=== PATIENT | female | born 1965 | race Caucasian/White ===

== ENCOUNTER → 2019-01-07 09:52 | Outpatient (CLI) | payer BC, SELFPAY ==
--- NOTE | 2019-01-07 11:10 | XR_ITS ---
XR hip LT 2-3V w/pelvis HISTORY: ITS.REASON: LAZARO HIP PAIN ORDERING PHYSICIAN: Tad Chance MD PATIENT AGE: 53 years COMPARISON: None FINDINGS: There are minimal osteoarthritic changes of the left hip with minimal spurring of the inferior aspect of the acetabulum. The joint spaces are well-preserved.. No fracture, dislocation or lytic change evident. There is minimal osteosclerosis of the symphysis pubis on the left with a small cystic area involving the inferior aspect of the left symphysis pubis. IMPRESSION: Minimal osteoarthritic change of the left hip. Osteosclerosis of the medial aspect of the symphysis pubis on the left with a small cystic area which may be due to a subchondral cyst.
--- NOTE | 2019-01-07 11:21 | XR_ITS ---
XR hip RT 2-3V w/pelvis HISTORY: ITS.REASON: BILATERAL HIP PAIN ORDERING PHYSICIAN: Tad Chance MD PATIENT AGE: 53 years COMPARISON: None FINDINGS: There are mild osteoarthritic changes of the right hip. No fracture, dislocation, lytic, or blastic change. IMPRESSION: Mild osteoarthritis right hip
== END ==
PROVIDERS: PCP Family Medicine; Visit Provider Family Medicine
DX: Z91.81 History of falling (principal); F05 Delirium due to known physiological condition; G40.A09 Absence epileptic syndrome, not intractable, without status epilepticus; R56.9 Unspecified convulsions; M25.552 Pain in left hip; M25.551 Pain in right hip
CPT/HCPCS: 73502; 95816

== ENCOUNTER → 2019-09-08 15:38 | Outpatient (CLI) | payer BC, SELFPAY ==
--- NOTE | 2019-09-08 15:46 | XR_ITS ---
PROCEDURE: XR KNEE RT 3V CLINICAL INDICATION: RT KNEE PAIN COMPARISON: No exams were available for comparison FINDINGS: No fracture or dislocation. No lytic or blastic change. There is normal mineralization. Is very slight decrease in the joint space medially suggesting minimal osteoarthritic change. Other findings:None. IMPRESSION: Minimal osteoarthritic change medial compartment Dictated by: Candelario Lewis MD 09/08/2019 17:14 Electronically signed by Candelario Lewis MD in [place] 09/08/2019 17:14
== END ==
PROVIDERS: PCP Family Medicine; Visit Provider Family Medicine
DX: M25.561 Pain in right knee (principal)
CPT/HCPCS: 73562

== ENCOUNTER → 2019-09-28 10:05 | Outpatient (CLI) | payer BC, SELFPAY ==
--- NOTE | 2019-09-28 10:09 | CA_ITS ---
APPROVED REPORT EXAM: Comprehensive 2D, Doppler, and color-flow Echocardiogram Weaver Apprentice: Marleni Serrano RDCS Ht: 5 ft 7 in Wt: 217lbs BSA: 2.09 BP: 124/84 mmHg Indications: SOA,LUCERO,COPD,OBESITY,HLP,DM,ANXIETY 2D Dimensions LVOT 1.82 cm (M/F) 1.5-2.5 M-Mode Dimensions RVDd 3.77 cm (0.9-2.6) LVDd 5.46 cm (3.5-5.7) LVDs 4.44 cm (3.5-5.7) IVSd 0.98 cm (0.6-1.1) PWd 0.59 cm (0.6-1.1) EF (Teich) 38.20% FS 18.70% EDV (Teich) 145.00 mL ESV (Teich) 89.60 mL LV Diastology E/A Ratio 0.93 Mitral Valve MV A Velocity 60.00 (40-130 cm/s) Left Ventricle Left atrium is mildly enlarged, left ventricle is normal size, mild concentric left ventricular hypertrophy, visually estimated ejection fraction 55% with no regional wall motion abnormality, endocardial surfaces are poorly visualized, grade 1 diastolic dysfunction seen without tissue Doppler evidence of raise left atrial pressure. Right Ventricle Right atrium and right ventricle are mildly enlarged with normal contractility. Aortic Valve Aortic valve is minimally thickened and fibrosed, there is no aortic stenosis insufficiency. Mitral Valve Mitral valve leaflets are minimally thickened, there is no mitral stenosis, there is mild mitral regurgitation. Tricuspid Valve Tricuspid valve is grossly normal, there is mild tricuspid regurgitation, tricuspid regurgitation jet velocity is inadequate for calculation of the right ventricular systolic pressure. Pulmonic Valve Pulmonic valve is poorly visualized. Great Vessels Aortic root is normal size. Pericardium No significant pericardial effusion noted. Conclusion 1. Biatrial alignment, normal left ventricular size, mild concentric left ventricular hypertrophy, visually estimated ejection fraction 55% with no regional wall motion abnormality, grade 1 diastolic dysfunction seen without tissue Doppler evidence of raise left atrial pressure. 2. Mildly enlarged right ventricle with normal contractility. 3. Mild mitral and tricuspid regurgitation. 4. No significant pericardial effusion noted. Electronically signed by : David Zepeda, 09/30/2019 07:50:36
--- NOTE | 2019-09-28 10:09 | CA_ITS ---
APPROVED REPORT Poultry Service Technician: FLORENCE Laterality: Bilateral Study Quality: Good Indications: SOA,LUCERO,COPD,HLP,SMOKER,OBESITY,DIZZINESS Doppler Spectral Velocity Analysis dICA (R) 86.70/38.30 cm/s dICA (L) 119.80/41.50 cm/s Xiomara (R) 60.60/24.50 cm/s Xiomara (L) 53.50/18.00 cm/s pICA (R) 43.60/13.80 cm/s pICA (L) 46.00/17.40 cm/s dCCA (R) 66.40/18.00 cm/s dCCA (L) 72.00/16.80 cm/s pCCA (R) 79.00/16.60 cm/s pCCA (L) 87.80/21.70 cm/s Vert (R) 38.90/11.50 cm/s Vert (L) 54.90/14.90 cm/s ICA/CCA 1.30 ICA/CCA 1.70 Findings Duplex evaluation demonstrates stenosis of the right proximal internal carotid artery <20% with PSV <140 cm/sec, EDV <100 cm/sec, and IC/CC Ratio <4.0.Duplex evaluation demonstrates stenosis of the left proximal internal carotid artery <20% with PSV <140 cm/sec, EDV <100 cm/sec, and IC/CC Ratio <4.0.Antegrade flow seen bilateral vertebral arteries. Conclusion No increased velocities to suggest hemodynamically significant stenosis in either internal carotid artery. Electronically signed by : Candelario Lewis MD 09/28/2019 17:13:49
== END ==
PROVIDERS: PCP Family Medicine; Visit Provider Nurse Practitioner
DX: R42 Dizziness and giddiness (principal); R01.1 Cardiac murmur, unspecified; R06.02 Shortness of breath
CPT/HCPCS: 93306; 93880

== ENCOUNTER → 2019-10-15 14:59 | Outpatient (CLI) | payer BC, SELFPAY ==
--- NOTE | 2019-10-15 15:07 | CA_ITS ---
APPROVED REPORT Bilateral Lower Extremity Venous Study for DVT. Preparation Operator: Tesha Acosta RVT Indications Lower Extremity Pain: Bilateral Lower Extremity Edema: Bilateral Shortness of breath Vein Imaging CFV (R): compressive, spontaneous, phasic, augmentation FEM (R): compressive, spontaneous, phasic, augmentation POP (R): compressive, spontaneous, phasic, augmentation PTV (R): Compressible GSV (R): Compressible Peroneals (R):Compressible GAS (R): Compressible CFV (L): compressive, spontaneous, phasic, augmentation FEM (L): compressive, spontaneous, phasic, augmentation POP (L): compressive, spontaneous, phasic, augmentation PTV (L): Compressible GSV (L): Compressible Peroneals (L):Compressible GAS (L): Compressible Findings Study suggests no evidence of DVT of the bilateral lower extremites. Study suggests no evidence of SVT of the bilateral lower extremites. There is a 7.8 cm (area is larger,unable to get accurate measurement)complex nodule seen right popliteal fossa that extends into the proximal to mid calf. Conclusion Study suggests no evidence of DVT of the bilateral lower extremites. Study suggests no evidence of SVT of the bilateral lower extremites. There is a 7.8 cm (area is larger,unable to get accurate measurement)complex nodule seen right popliteal fossa that extends into the proximal to mid calf. Differential diagnosis includes large complex Bakers cyst, hematoma, abscess or neoplasm. Suggest MRI with and without contrast of knee and right tib fib for further evaluation Electronically signed by : Candelario Lewis MD 10/15/2019 16:36:21
== END ==
PROVIDERS: PCP Family Medicine; Visit Provider Internal Medicine
DX: M79.605 Pain in left leg (principal); M79.604 Pain in right leg; R60.0 Localized edema
CPT/HCPCS: 93970

== ENCOUNTER → 2019-10-26 06:47 | Outpatient (CLI) | payer BC, SELFPAY ==
--- NOTE | 2019-10-26 | CA_ITS ---
APPROVED REPORT Exam: Pharmacologic Technologist: Angely Perez Ht: 5 ft 7 in Wt: 217 lbs BSA: 2.09 m2 HR: 86 bpm BP: 124/83 mmHg Indications: Chest pain, Shortness of Breath Medical History Medications: Lorazepam,,,,, Furosemide (LASIX),,,,, Aspirin,,,,, Gabapentin,,,,, DulOXETINE,,,,, Quetiapine,,,,, Potassium,,,,, Stress Test Details Test: LEXISCAN HR Resting HR: 86 bpm Max Heart Rate (APMHR): 166 bpm Max HR Achieved: 103 bpm Target HR (85% APMHR): 141 bpm % of APMHR: 62 Recovery HR: 91 bpm BP Resting BP: 124.0/83.0 mmHg Max BP: 124.0/83.0 mmHg Recovery BP: 10.0/69.0 mmHg ECG Clinical Exercise duration: 04:00 min Highest Stage Achieved: Exercise capacity: 1.0 METs Stress ECG Conclusion Resting ECG: Sinus rhythm Lexiscan portion completed. Patient complained of dizziness at peak infusion. Symptoms: Dizziness during peak infusion. Resolved in recovery. No chest pain. No shortness of breath. Arrhythmias/Ectopy: No ectopy. ST-T Changes: Less than 1.[address] Depression. Conclusion: Images to follow. Test Summary REST 03:19 . . 86 . 124/ 83 . . Stage 1 01:00 . . 91 . . . . Stage 2 01:00 . . 98 . . . . Stage 3 01:00 . . 95 . 93/ 57 . . Stage 4 01:00 . . 94 . 94/ 63 . Stop exercise at 04:00 RECOVERY 01:00 . . 93 . 101/ 66 . . RECOVERY 02:00 . . 92 . 108/ 68 . . RECOVERY 03:00 . . 92 . 110/ 66 . . RECOVERY 04:00 . . 90 . 110/ 66 . . RECOVERY 04:14 . . 90 . 100/ 69 . . Electronically signed by : David Zepeda, 10/26/2019 19:15:02
--- NOTE | 2019-10-26 06:48 | XR_ITS ---
PROCEDURE: XR CHEST 2V CLINICAL HISTORY: WILLIAM Chest pain and shortness of breath, smoker COMPARISON: CXR CHEST(2 VIEWS-NOT PORTABLE) from 08/27/2013 CXR CHEST(2 VIEWS-NOT PORTABLE) from 02/26/2014 CXR CHEST(2 VIEWS-NOT PORTABLE) from 07/31/2016 FINDINGS: The cardiomediastinal silhouette and pulmonary vascularity are within normal limits. Increased density is present involving the left upper lobe medially possibly due to bony hypertrophic changes. The remaining lungs are clear. No acute bony abnormalities. IMPRESSION: Increased density left upper lobe medially possibly due to overlying bony hypertrophic change which may be confirmed with chest CT otherwise negative Dictated by: Candelario Lewis MD 10/26/2019 11:47 Electronically signed by Candelario Lewis MD in [place] 10/26/2019 11:47
--- NOTE | 2019-10-26 06:48 | NM_ITS ---
APPROVED REPORT Exam: Nuclear Stress Test Indication: Chest pain, SOB, Abnormal EKG, DM, Tobacco use Patient Location: Outpatient Stress Tech: Angely Perez DC Tech:Tiesha Petersen, ARRT, RT (R)(N) Ht: 5 ft 7 in Wt: 217 lbs Bra Size: B HR: 86 bpm BP: 124/83 mmHg BSA: 2.09 m2 BMI: 33.9 History: Chest pain, SOB, Abnormal EKG, DM, Tobacco use Procedure: Patient received a 0.4 mg of intravenous Lexiscan, resting heart rate 86 bpm, resting blood pressure 124/83 mmHg, with Lexiscan maximum heart rate achived was 96 bpm which is Less than 85 % of the maximum predicted heart rate and blood pressure was 95/59 mmHg. With Lexiscan, patient denied any complaint of chest pain. Electrocardiogram Resting electrocardiogram showed sinus rhythm, with Lexiscan there is less than 1.[address] segment depression noted from the baseline EKG. The EKG portion of the Lexiscan is nondiagnostic. Cardiac Stress and Resting SPECT Images: Cardiac Stress and Resting SPECT images were obtained using technetium 99m Myoview 31.4 mCi stress and 10.15 mCi at rest. Gated gated SPECT with analysis of segmental wall motion and calculation of the ejection fraction also done. Cardiac stress and resting SPECT images show uniform myocardial activity without segmental perfusion abnormality, computer derived ejection fraction is over 65% with no regional wall motion abnormality, right ventricle is normal size and contractility. Conclusion: 1. The EKG portion of the Lexiscan Myoview is nondiagnostic. 2. No scintigraphic evidence of reversible ischemia seen, computer derived ejection fraction is over 65% with no regional wall motion abnormality, right ventricle is normal size and contractility. 3. Normal Lexiscan Myoview study. Electronically signed by : David Zepeda, 10/26/2019 19:17:27
--- NOTE | 2019-10-26 08:28 | HMH.ITSHM ---
Current Home Medications as stated by this patient Milena Cornell or commercial representative. []TRAZODONE QUETIAPINE POTASSIUM OMEGA 3 LORAZEPAM GLYCOPYROLATE GABAPENTIN FUROSEMIDE DULOXETINE ASA
[2019-10-26 11:25] LABS: Anion Gap 13.8 mEq/L (5-15); Blood Urea Nitrogen 21 mg/dl (7-17); Calcium 9.9 mg/dl (8.4-10.2); Carbon Dioxide 28 mmol/L (22.0-30.0); Chloride 99 mmol/L (98-107); Estimated Glomerular Filt Rate 75 ml/min (>60); GFR (African American) 90 ML/MIN (>60); Glucose 128 mg/dl (74-100); Potassium 4.8 mmoL/L (3.5-5.1); Sodium 136 mmol/L (136-145)
== END ==
PROVIDERS: Internal Medicine Cardiovascular Disease; PCP Family Medicine; Visit Provider Physician Assistant
DX: R07.9 Chest pain, unspecified (principal); R06.00 Dyspnea, unspecified; I45.10 Unspecified right bundle-branch block; R60.9 Edema, unspecified; G47.33 Obstructive sleep apnea (adult) (pediatric); J44.9 Chronic obstructive pulmonary disease, unspecified; R94.31 Abnormal electrocardiogram [ECG] [EKG]; Z82.49 Family history of ischemic heart disease and other diseases of the circulatory system; E13.69 Other specified diabetes mellitus with other specified complication; R07.89 Other chest pain
CPT/HCPCS: 36415; 71046; 78452; 80048; 93017; A9502; J2785

== ENCOUNTER → 2019-10-29 08:38 | Outpatient (CLI) | payer BC, SELFPAY ==
--- NOTE | 2019-10-29 08:38 | MR_ITS ---
PROCEDURE: MR LOWER LEG RT WO/W CON CLINICAL INDICATION: pain in right leg, mass seen on doppler Pain and swelling, tightness in leg, abnormal venous Doppler she COMPARISON: Venous Doppler of 10/15/2019, MRI of the knee 10/29/2019 TECHNIQUE: Routine multiplanar multi echo sequences are performed without and with gadolinium enhancement. FINDINGS: There is a complex fluid collection along the posterior medial aspect of the calf which is contiguous with the complex Cao's cyst. This collection measures 10 cm cephalad caudad, 4.4 cm AP, and 2 cm transverse isointense on T1 and hyperintense on T2 containing some internal debris and septations. This does appear to be contiguous with the Cao's cyst through a small channel between the Cao cyst and this fluid collection. This does demonstrate some peripheral contrast enhancement. There are some scattered areas of heterogeneous signal intensity within this collection suggesting underlying debris or hemorrhage. These areas also show some minimal enhancement. Overall, this is consistent with extension of the Cao's cyst into the calf. This collection lies along the medial aspect of the medial head of the gastrocnemius muscle causing compression upon that muscle. IMPRESSION: Complex fluid collection along the posterior medial aspect of the proximal and mid calf as described above which is felt to be related to complex extension of a Cao's cyst. This is causing some compression upon the medial head of the gastrocnemius muscle. Dictated by: Candelario Lewis MD 10/31/2019 11:27 Electronically signed by Candelario Lweis MD in [place] 10/31/2019 11:27
--- NOTE | 2019-10-29 08:38 | MR_ITS ---
PROCEDURE: MR KNEE RT WO/W CON CLINICAL INDICATION: pain in right leg, mass seen on doppler Right leg pain and swelling, abnormal venous Doppler, fluid collection in the knee COMPARISON: CA VENOUS DOPPLER LE BI from 10/15/2019 TECHNIQUE: Routine multiplanar multi echo sequences are performed without and with gadolinium enhancement. FINDINGS: The cruciate ligaments are intact. The patellar tendon, quadriceps tendon, and collateral ligaments are intact. There does appear to be a small the radial tear of the posterior horn of the medial meniscus. The patellar cartilage is preserved. There is a moderate size knee joint effusion mainly in the suprapatellar region with subcutaneous edema of the knee. There is a prominent septated Cao's cyst measuring 6.9 cm cephalad caudad and up to 2.6 cm AP. There is a small amount of soft tissue edema around the Cao's cyst. Please see the lower extremity report for further description of the leg. IMPRESSION: 1. Small radial tear involves the posterior horn of the medial meniscus. 2. Moderate-sized knee joint effusion mainly in the suprapatellar region with complex Cao's cyst with a small amount of soft tissue edema around the cyst and about the knee. Dictated by: Candelario Lewis MD 10/31/2019 11:00 Electronically signed by Candelario Lewis MD in [place] 10/31/2019 11:00
== END ==
PROVIDERS: PCP Family Medicine; Visit Provider Physician Assistant
DX: M79.604 Pain in right leg (principal); M79.605 Pain in left leg; R22.41 Localized swelling, mass and lump, right lower limb
CPT/HCPCS: 73720; 73723; A9576

== ENCOUNTER → 2019-11-17 13:15 | Outpatient (CLI) | payer BC, SELFPAY ==
--- NOTE | 2019-11-17 13:26 | XR_ITS ---
PROCEDURE: XR KNEE RT 4V CLINICAL INDICATION: right knee pain COMPARISON: XR KNEE RT 3V from 09/08/2019 FINDINGS: No fracture or dislocation. No lytic or blastic change. There is normal mineralization. The joint spaces are well-preserved. No significant degenerative/arthritic changes. No erosive changes evident. Other findings:None. IMPRESSION: No acute findings. Dictated by: Candelario Lewis MD 11/17/2019 13:48 Electronically signed by Candelario Lewis MD in [place] 11/17/2019 13:49
== END ==
PROVIDERS: PCP Family Medicine; Visit Provider Orthopaedic Surgery
DX: M25.561 Pain in right knee (principal)
CPT/HCPCS: 73564

== ENCOUNTER 2019-12-24 08:29 | Day surgery (SDC) | payer BC, SELFPAY ==
[2019-12-24 08:32] VITALS: BMI 34.0
[2019-12-24 09:02] VITALS: BP 123/88; PULSE 76; RESP 16; TEMP 36.7; O2SAT 95
[2019-12-24 09:14] LABS: Basophils # 0.1 K/mm3 (0-0.2); Eosinophils # 0.1 K/mm3 (0.0-0.4); Monocytes # 0.6 K/mm3 (0.1-1.0); Monocytes % 6.4 % (1.7-9.3); Neutrophils # 4.8 K/mm3 (1.8-7.8); White Blood Count 9.6 K/mm3 (4.8-10.8)
[2019-12-24 09:19] LABS: Basophils % 0.7 % (0.1-2.0); Eosinophils % 1.1 % (0.1-12.0); Hematocrit 52.6 % (37.0-47.0); Lymphocytes # 4.1 K/mm3 (0.7-4.5); Lymphocytes % 42.4 % (10-50); Mean Corpuscular Hemoglobin 30.4 pg (27.0-31.2); Mean Platelet Volume 7.6 fl (7.4-10.4); Neutrophils % 49.4 % (37.0-80.0); Platelet Count 263 K/mm3 (142-424); Red Blood Count 6.04 M/mm3 (4.20-5.40); Red Cell Distribution Width 13.6 % (11.5-17.5)
[2019-12-24 09:20] LABS: Chloride 108 mmol/L (98-107); Potassium 4.2 mmoL/L (3.5-5.1); Sodium 140 mmol/L (136-145)
[2019-12-24 09:23] LABS: Blood Urea Nitrogen 17 mg/dl (7-17); Creatinine Clearance Estimated 143 mL/min (50-200); Estimated Glomerular Filt Rate 87 ml/min (>60); GFR (African American) 106 ML/MIN (>60)
[2019-12-24 09:24] LABS: Anion Gap 10.2 mEq/L (5-15); Carbon Dioxide 26 mmol/L (22.0-30.0)
[2019-12-24 09:35] LABS: Hemoglobin 18.4 g/dL (12.2-16.2)
[2019-12-24 09:37] LABS: Calcium 9.6 mg/dl (8.4-10.2); Glucose 115 mg/dl (74-100)
--- NOTE | 2019-12-24 11:00 | IR_ITS ---
APPROVED REPORT Patient Location: Outpatient Transportation Inspector: ANGELICA Cifuentes RT (R) PROCEDURES Left heart catheterization Left ventriculogram Selective coronary angiogram INDICATION Abnormal stress test Informed consent was obtained prior to the procedure. COMPLICATIONS none Estimated Blood Loss: less than 10 mls TECHNIQUE One percent lidocaine used to anesthetize the right anterior aspect of the wrist. The right radial artery was accessed via the Seldinger technique. A 6 Hungarian sheath was placed in the right radial artery. 2.5 mg of verapamil, 800 mcg of nitroglycerin, 1mg Lidocaine and 5000 U Heparin were given through the arterial sheath. The trap catheter was also used to perform left heart catheterization, left ventriculogram and selective coronary angiogram. At the end of the procedure the sheath was removed good hemostasis was achieved using Traclet band, patient was transferred to the postop holding area in stable condition. ANGIOGRAPHIC RESULTS The left main artery Normal The left anterior descending artery Normal The circumflex artery Normal The right coronary artery Dominant normal The ESTRADA ventriculogram reveals Hyperdynamic 75% The left ventricular end-diastolic pressure 15 mmHg IMPRESSION Normal coronary arteries Hyperdynamic ventricle Mildly elevated LVEDP PLAN 1. Medical management for diastolic dysfunction Electronically signed by : Fazal Wilde, 12/24/2019 12:27:30
[2019-12-24 12:20] VITALS: BP 111/69; PULSE 74; RESP 18; O2SAT 88
[2019-12-24 12:25] VITALS: BP 134/69; PULSE 73; RESP 16; O2SAT 88
[2019-12-24 12:30] VITALS: BP 96/46; PULSE 90; RESP 16; O2SAT 94
[2019-12-24 12:36] VITALS: BP 114/67; PULSE 74; RESP 18; O2SAT 83
[2019-12-24 12:45] VITALS: BP 110/69; PULSE 82; RESP 17; O2SAT 91
== END 2019-12-24 14:42 | disposition home or self-care (01) ==
LOC: CATHLAB 08:31
PROVIDERS: PCP Family Medicine; Visit Provider Internal Medicine
DX: I20.8 Other forms of angina pectoris (principal); I50.30 Unspecified diastolic (congestive) heart failure; E11.9 Type 2 diabetes mellitus without complications; J44.9 Chronic obstructive pulmonary disease, unspecified; Z72.0 Tobacco use; Z79.51 Long term (current) use of inhaled steroids; Z79.899 Other long term (current) drug therapy
CPT/HCPCS: 80048; 85025; 93458; 99152; C1725; C1769; J1644; Q9967

== ENCOUNTER → 2020-06-13 15:58 | Outpatient (CLI) | payer BC, SELFPAY ==
[2020-06-15 13:19] LABS: Covid-19 Nasal PCR Sendout Lex Not Detected
== END ==
PROVIDERS: PCP Family Medicine; Visit Provider Family Medicine
DX: Z03.818 Encounter for observation for suspected exposure to other biological agents ruled out (principal)
CPT/HCPCS: U0004

== ENCOUNTER → 2020-06-28 15:44 | Outpatient (CLI) | payer BC, SELFPAY ==
[2020-06-30 14:48] LABS: Covid-19 Nasal PCR Sendout P&C NEGATIVE
== END ==
PROVIDERS: PCP Family Medicine; Visit Provider Family Medicine
DX: Z03.818 Encounter for observation for suspected exposure to other biological agents ruled out (principal)
CPT/HCPCS: U0004

== ENCOUNTER → 2020-12-13 09:11 | Outpatient (CLI) | payer BC, SELFPAY ==
--- NOTE | 2020-12-13 09:18 | XR_ITS ---
PROCEDURE: XR CHEST PORTABLE CLINICAL HISTORY: COVID OUTPATIENT COMPARISON: CR CXR CHEST(2 VIEWS-NOT PORTABLE) from 02/26/2014 CR CXR CHEST(2 VIEWS-NOT PORTABLE) from 07/31/2016 CR XR CHEST 2V from 10/26/2019 FINDINGS: The cardiomediastinal silhouette and pulmonary vascularity are within normal limits. No lobar consolidation or collapse. Minimal atelectatic change left lung base versus overlying vessels. No acute bony abnormalities. IMPRESSION: No acute findings. Dictated by: Candelario Lewis MD 12/13/2020 10:10 Candelario Lewis MD in [place] 12/13/2020 10:10
[2020-12-13 09:42] LABS: Basophils # 0.1 K/mm3 (0-0.2); Basophils % 0.9 % (0.1-2.0); Eosinophils # 0.1 K/mm3 (0.0-0.4); Eosinophils % 0.5 % (0.1-12.0); Hematocrit 47.8 % (37.0-47.0); Hemoglobin 16.1 g/dL (12.2-16.2); Lymphocytes # 5.6 K/mm3 (0.7-4.5); Lymphocytes % 48.4 % (10-50); Mean Corpuscular HGB Conc 33.7 g/dL (31.8-35.4); Mean Corpuscular Hemoglobin 29.8 pg (27.0-31.2); Mean Corpuscular Volume 88.6 fl (81-99); Mean Platelet Volume 7.4 fl (7.4-10.4); Monocytes # 0.6 K/mm3 (0.1-1.0); Monocytes % 5.2 % (1.7-9.3); Neutrophils # 5.2 K/mm3 (1.8-7.8); Platelet Count 316 K/mm3 (142-424); White Blood Count 11.5 K/mm3 (4.8-10.8)
== END ==
PROVIDERS: PCP Family Medicine; Visit Provider Family Medicine
DX: Z20.822 Contact with and (suspected) exposure to COVID-19 (principal)
CPT/HCPCS: 71045; 85025; U0003

== ENCOUNTER → 2021-05-23 07:07 | Outpatient (CLI) | payer BC, SELFPAY ==
--- NOTE | 2021-05-23 07:41 | CT_ITS ---
PROCEDURE: CT LUNG SCREENING CLINICAL INDICATION: SMOKER SCREENING COMPARISON: CR XR CHEST 2V from 10/26/2019 TECHNIQUE: The exam was performed on a GE Light Speed [address] scanner using 2.90 mGy CTDI. A low dose helical CT CHEST was performed on a multi-detector scanner. All CT scans at the facility use one or more dose reduction, viz: automated exposure control, ma/kV adjustment per patient size (including targeted exams where dose is matched to indication, i.e. head), or iterative reconstruction technique. The LDCT was performed in a facility that meets the criteria for the screening program. Data regarding this exam was submitted to ACR which is an approved registry. The order for this exam indicates that it came as a result of a lung cancer screening counseling shard decision-making visit that included all the elements required of such a visit including smoking cessation. The radiologist interpreting this exam meets the CMS criteria for the LDCT lung cancer screening program. The exam is reported using the Lung-RADS classification scale and reported to the ACR registry. NOTE: This study was performed for the specific purposes of lung cancer screening and is not an alternative to diagnostic chest CT. RADIATION DOSE: CTDI vol(CT dose Index-volume) = 2.90mG DLP (Dose Length Product) = 90.86 mGcm FINDINGS: Small fissural nodule in the right minor fissure 4 mm. Benign-appearing 4 mm subpleural nodule left upper lobe laterally. COPD with scattered areas of scarring. No suspicious nodule identified. Mild central bronchial thickening. OTHER FINDINGS: Mild wedging of T8 which appears chronic. Minimal superior endplate compression change T11 which may also be chronic. Indeterminate 2 cm I so to hypodense lesion in the upper pole of the left kidney. This may be due to an angio myelolipoma as average density is -[address] of the kidneys without and with contrast may confirm.. IMPRESSION: Lung-RADS Category 2 Benign Appearance or Behavior Follow-up: Recommend annual LDCT. Also suggest further evaluation of the left kidney lesion with CT with renal protocol without and with contrast. Dictated by: Candelario Lewis MD 05/27/2021 09:15 Candelario Lewis MD in [place] 05/27/2021 09:15
[2021-05-23 08:40] VITALS: PULSE 74; PULSE 77
== END ==
PROVIDERS: PCP Family Medicine; Visit Provider Family Medicine
DX: Z87.891 Personal history of nicotine dependence (principal); Z12.2 Encounter for screening for malignant neoplasm of respiratory organs; R06.02 Shortness of breath
CPT/HCPCS: 71271; 94060; 94618; 94640; 94727; 94729

== ENCOUNTER → 2021-09-26 11:50 | Outpatient (CLI) | payer BC, SELFPAY ==
--- NOTE | 2021-09-26 12:01 | XR_ITS ---
FINAL REPORT CLINICAL HISTORY: LEFT ANKLE SWELLING / ACUTE LEFT ANKLE PAIN fall 1 week ago FINDINGS: LEFT ANKLE 3 views were obtained. There is no acute fracture or dislocation. There are moderate anterior osteophytes along the anterior aspect of the mortise. There is diffuse soft tissue swelling. There is a well corticated ossific density inferior to the lateral malleolus measuring 9 mm consistent with old trauma. IMPRESSION: Soft tissue swelling with no acute bony abnormality. Reviewed, Interpreted and Dictated by Jai Choe MD Transcribed by Ambar Garcia Authenticated by Jai Choe MD on 09/26/2021 01:53:32 PM [facility]
== END ==
PROVIDERS: PCP Nurse Practitioner Family; Visit Provider Nurse Practitioner Family
DX: M25.572 Pain in left ankle and joints of left foot (principal); M25.472 Effusion, left ankle
CPT/HCPCS: 73610

== ENCOUNTER 2021-12-29 20:19 | Emergency (ER) | payer BC, SELFPAY ==
[2021-12-29 20:49] VITALS: BP 119/73; PULSE 74; RESP 18; TEMP 36.8; O2SAT 92; BMI 34.9
--- NOTE | 2021-12-29 20:50 | HMH.EDGENADL ---
ED Disposition Clinical Impression: Medication refill Disposition: Home, Self-Care Condition on Discharge: Good Referrals: Aretha Farmer APRN [Primary Care Provider] - - Critical Care Critical Care Time: No Attestation: On 12/29/21, the high probability of a clinically significant, sudden or life threatening deterioration of the following system(s) required my full and direct attention, intervention and personal management. The time I documented below is in addition to time spent performing reported procedures but includes the following listed in this critical care notation. Medical Decision Making - Medical Records Medical records reviewed: Yes: I reviewed the patient's medical records. - Kurtis Inquiry Pt receiving controlled substance: No Vital Signs: 12/29/21 20:49 Temperature 98.2 F Temperature Source Oral Pulse Rate [Apical] 74 Respiratory Rate 18 Blood Pressure [Right Arm] 119/73 Blood Pressure Mean [Right Arm] 88 02 Sat by Pulse Oximetry 92 L Oxygen Delivery Method Room Air Medical Decision Narrative: Patient is a 56-year-old female presenting with a request for lorazepam refill. She has recently received a refill for 120 of 2mg lorazepam QID PRN. Patient was seen by her primary care physician this past week. Patient was counseled that she should follow up with her primary care physician regarding refills for anxiety medications. She was offered alternate medicine to see if this may be helpful to her while she waits to see her primary care physician to get her refills on Saturday. Patient was agreeable with this. Currently, denies SI/HI. Denies any other concern or illness. General Adult HPI - General Stated complaint: depression possible could go into seizure Time Seen by Provider: 12/29/21 20:50 - History of Present Illness HPI narrative: Milena is a 56-year-old female with a history of anxiety is presenting with a chief complaint of medication refill. Patient states she takes 2 mg of lorazepam 3 times a day for anxiety. Per record review, patient received a prescription for 120 of 2 mg lorazepam on . She was seen by her primary care physician this past week who did not refill this prescription, unsure why. Patient states she only takes it 3 times a day as needed. She is requesting another refill. Denies recent illness, current SI/HI. - Related Data Home Medications Medication Instructions Recorded Confirmed aspirin 81 mg tablet,delayed 81 mg PO DAILY tab 01/09/18 06/06/21 release duloxetine 60 mg capsule,delayed 60 mg PO BID cap 01/09/18 06/06/21 release lorazepam 2 mg tablet 2 mg PO DAILY PRN tab 01/09/18 06/06/21 quetiapine 200 mg tablet 200 mg PO .Q HS tab 01/09/18 06/06/21 trazodone 100 mg tablet 100 mg PO .Q HS tab 01/09/18 06/06/21 omega 2-lgz-tyn-fish oil 1,000 mg 1 cap PO BID cap 10/15/19 06/06/21 (120 mg-180 mg) capsule albuterol sulfate 90 mcg/actuation 1 inh INHALATION QID 06/06/21 06/06/21 aerosol inhaler diclofenac sodium 50 mg 50 mg PO tab 06/06/21 06/06/21 tablet,delayed release Previous Rx's Medication Instructions Recorded metoprolol succinate 25 mg 25 mg PO DAILY #30 tab 05/30/20 tablet,extended release 24 hr budesonide 160 mcg-glycopyr 9 2 inh INHALATION BID 90 Days #10.7 06/06/21 mcg-formot 4.8 mcg/actuation HFA g inhaler ipratropium 0.5 mg-albuterol 3 mg 3 ml INHALATION Q6H PRN #90 ml 06/06/21 (2.5 mg base)/3 mL nebulization soln hydrOXYzine pamoate [Vistaril 25mg 25 mg PO Q6H PRN #40 cap 12/29/21 capsule] Allergies Allergy/AdvReac Type Severity Reaction Status Date / Time tapentadol [TAPENTADOL] Allergy Unknown SKIN PULLS Verified 06/06/21 11:47 OFF [facility] History - Hepatitis A Screen Attestation statement:: This patient has been screened for Hepatitis A risk factors. Medical History: Reports:: Anxiety, Cancer, Chronic Obstructive Pulmonary Disease (COPD), Depression, Diabetes
[2021-12-29 21:56] VITALS: BP 118/70; PULSE 85; RESP 18; TEMP 36.8; O2SAT 95
== END 2021-12-29 21:58 | disposition home or self-care (01) ==
PROVIDERS: Emergency Provider Emergency Medicine; PCP Nurse Practitioner Family
DX: Z76.0 Encounter for issue of repeat prescription (principal); F41.9 Anxiety disorder, unspecified; Z79.899 Other long term (current) drug therapy; Z88.8 Allergy status to other drugs, medicaments and biological substances; M19.90 Unspecified osteoarthritis, unspecified site; J44.9 Chronic obstructive pulmonary disease, unspecified; E10.9 Type 1 diabetes mellitus without complications; E11.9 Type 2 diabetes mellitus without complications; E78.5 Hyperlipidemia, unspecified; Z72.0 Tobacco use; Z85.9 Personal history of malignant neoplasm, unspecified; Z90.49 Acquired absence of other specified parts of digestive tract
CPT/HCPCS: 99282

== ENCOUNTER 2022-06-16 14:10 | Emergency (ER) | payer BC, SELFPAY ==
[2022-06-16 14:30] VITALS: BP 134/89; PULSE 68; RESP 19; TEMP 36.8; O2SAT 95; BMI 35.9
[2022-06-16 14:48] LABS: Coronavirus 19, PCR Not Detected (NotDetected); Influenza A, PCR Not Detected (NotDetected); Influenza B, PCR Not Detected (NotDetected)
--- NOTE | 2022-06-16 14:57 | XR_ITS ---
PROCEDURE INFORMATION: Exam: XR Chest Exam date and time: 06/16/2022 2:54 PM Age: 56 years old Clinical indication: Cough TECHNIQUE: Imaging protocol: Radiologic exam of the chest. Views: 2 views. COMPARISON: CR XR CHEST PORTABLE 12/13/2020 9:27 AM FINDINGS: Lungs: Mild opacities in both bases Pleural spaces: Unremarkable. No pleural effusion. No pneumothorax. Heart/Mediastinum: Unremarkable. No cardiomegaly. Bones/joints: Unremarkable. IMPRESSION: Mild opacities in both bases may represent atelectasis or pneumonia..
--- NOTE | 2022-06-16 15:05 | EXP.UTC ---
Discharge Plan Disposition Patient Disposition: Home, Self-Care Condition: Good Prescriptions Prescriptions: New cephalexin [cephalexin] 500 mg tablet 500 mg PO BID 7 Days Qty: 14 0RF No Action lorazepam 2 mg tablet 2 mg PO DAILY PRN aspirin [Adult Low Dose Aspirin] 81 mg tablet,delayed release (DR/EC) 81 mg PO DAILY quetiapine [Seroquel] 200 mg tablet 200 mg PO .Q HS trazodone 100 mg tablet 100 mg PO .Q HS duloxetine 60 mg capsule,delayed release(DR/EC) 60 mg PO BID omega 7-wek-hdp-fish oil [Fish Oil] 1,000 mg (120 mg-180 mg) capsule 1 cap PO BID diclofenac sodium 50 mg tablet,delayed release (DR/EC) 50 mg PO albuterol sulfate [Ventolin HFA] 90 mcg/actuation HFA aerosol inhaler 1 inh INHALATION QID Breztri Aerosphere 160-9-4.8 mcg/actuation HFA aerosol inhaler 2 inh INHALATION BID 90 Days Qty: 10.7 3RF ipratropium-albuterol 0.5 mg-3 mg(2.5 mg base)/3 mL solution for nebulization 3 ml INHALATION Q6H PRN (Reason: shortness of breath or wheezing) Qty: 90 6RF metoprolol succinate [Toprol XL] 25 mg tablet extended release 24 hr 25 mg PO DAILY Qty: 30 5RF hydroxyzine pamoate 25 MG capsule 25 mg PO Q6H PRN (Reason: Anxiety) Qty: 40 0RF Referrals Follow up/Referrals: Tad Chance MD [Primary Care Provider] - See instructions Clinical Impressions Clinical Impression: UTI (urinary tract infection), Upper respiratory infection Instructions Patient Instructions: DI for Urinary Tract Infection (UTI), DI for Viral Upper Respiratory Infection -- Adult Discharge ED Provider: Nova ([facility])[place] [facility] [place] General Stated complaint: sore throat, runny nose, ENGLISH Mode of Arrival: Ambulatory Source of Information: Patient Limitations: No Limitations Time Seen by Provider: 06/16/22 15:05 Description of Symptoms (Recalled from Triage Doc. by RN): PATIENT C/O RUNNY NOSE AND BILATERAL EAR PAIN X 2 DAYS HEENT Symptoms (Recalled from RN notes): Yes Resp Symptoms (Recalled from RN notes): No Skin Symptoms (Recalled from RN notes): No MS Symptoms (Recalled from RN notes): No Functional Status (Recalled from RN notes): WNL History of Present Illness Provider Complaint: 56 yr old female presents for yg ear pain, congestion, cough, burning with urination, freq, and urine dark. pt states she had pneumonia last month and wants to be checked Related Data Home Medications Medication Instructions Recorded Confirmed aspirin 81 mg tablet,delayed 81 mg PO DAILY 01/09/18 06/05/22 release (Adult Low Dose Aspirin) duloxetine 60 mg capsule,delayed 60 mg PO BID 01/09/18 06/05/22 release lorazepam 2 mg tablet 2 mg PO DAILY PRN 01/09/18 06/05/22 quetiapine 200 mg tablet (Seroquel) 200 mg PO .Q HS 01/09/18 06/05/22 trazodone 100 mg tablet 100 mg PO .Q HS 01/09/18 06/05/22 omega 6-qdo-qgd-fish oil 1,000 mg 1 cap PO BID 10/15/19 06/05/22 (120 mg-180 mg) capsule (Fish Oil) albuterol sulfate 90 mcg/actuation 1 inh inhalation QID 06/06/21 06/05/22 aerosol inhaler (Ventolin HFA) diclofenac sodium 50 mg 50 mg PO 06/06/21 06/05/22 tablet,delayed release Previous Rx's Medication Instructions Recorded metoprolol succinate 25 mg 25 mg PO DAILY #30 tabs 05/30/20 tablet,extended release 24 hr (Toprol XL) budesonide 160 mcg-glycopyr 9 2 inh inhalation BID 90 days #10.7 06/06/21 mcg-formot 4.8 mcg/actuation HFA grams inhaler (Breztri Aerosphere) ipratropium 0.5 mg-albuterol 3 mg 3 ml inhalation Q6H PRN shortness 06/06/21 (2.5 mg base)/3 mL nebulization of breath or wheezing #90 mL soln hydroxyzine pamoate 25 mg capsule 25 mg PO Q6H PRN Anxiety #40 caps 12/29/21 cephalexin 500 mg tablet 500 mg PO BID 7 days #14 tabs 06/16/22 Allergies Allergy/AdvReac Type Severity Reaction Status Date / Time tapentadol [TAPENTADOL] Allergy Unknown SKIN PULLS Verified 06/05/22 14:07 OFF Worker's Comp Is this a Worker's Comp case?: No PFS PF
[2022-06-16 15:20] LABS: Apearance,Urine Clear (Clear); Bilirubin,Urine Negative (Negative); Blood, Urine Negative (Negative); Color,Urine Yellow (Yellow); Glucose,Urine (UA) Negative (Negative); Ketones,Urine Negative (Negative); Protein,Urine Negative (Negative); UTC Leukocyte Esterase,Urine 1+ (Negative); UTC Nitrate,Urine Negative (Negative); Urobilinogen,Urine 1 EU/dl (0.2)
[2022-06-16 15:38] VITALS: BP 134/89; PULSE 68; RESP 19; TEMP 36.8; O2SAT 95
== END 2022-06-16 15:43 | disposition home or self-care (01) ==
PROVIDERS: Emergency Provider Nurse Practitioner Family; PCP Family Medicine
DX: N39.0 Urinary tract infection, site not specified (principal); J06.9 Acute upper respiratory infection, unspecified
CPT/HCPCS: 71046; 81003; 87086; 99212; C9803; G0463; U0003; U0005

== ENCOUNTER → 2022-07-24 09:58 | Outpatient (POV) | payer BC, SELFPAY | PROVIDERS: Visit Provider Dermatology | DX: Z00.00 Encounter for general adult medical examination without abnormal findings (principal) ==